=== PATIENT | male | born 1965 | race Hispanic/Latino ===

== ENCOUNTER 2018-02-06 11:30 | Observation (INO) | payer OTHER ==
[~2018-02-06] VITALS: Ht 175.3 cm; Wt 94.7 kg
[2018-02-06 09:50] VITALS: BP 118/76
[2018-02-06 10:06] LABS: BASOPHILS % (AUTO) 1.4 % (0.0-5.0); EOSINOPHILS % (AUTO) 3.8 % (0.0-8.0); HEMATOCRIT 42.2 % (42-54); LYMPHOCYTES % (AUTO) 28.4 % (21.0-51.0); MEAN CORPUSCULAR HEMOGLOBIN 33.1 pg (27.0-33.0); MEAN CORPUSCULAR HGB CONC 35.5 g/dL (32.0-36.0); MEAN CORPUSCULAR VOLUME 93.2 fL (79-99); MONOCYTES % (AUTO) 11.4 % (3.0-13.0); PLATELET COUNT (AUTO) 288 K/uL (130-400); RED BLOOD CELL COUNT(AUTO) 4.53 MIL/uL (4.50-6.20); RED CELL DISTRIBUTION WIDTH 13.3 % (11.0-15.5); WHITE BLOOD COUNT (AUTO) 5.7 K/uL (4.8-10.8)
[2018-02-06 10:15] LABS: POTASSIUM 4.2 mmol/L (3.5-5.1)
[~2018-02-06 11:30] MED LIST: AEC81 PO; FISH1CAP50 PO; GABA-531 PO
[2018-02-07] MEDS ORDERED: OLME1TAB46 PO (11:42)
[2018-02-09] VITALS (20 sets, daily range): BP systolic 90–154; BP diastolic 45–66
[2018-02-09] MEDS: CEFAZOLIN SODIUM 1 GM VIAL IVP SCH ×2 (06:00→07:30)
[2018-02-09] MEDS ORDERED: LACTATED RINGERS 1000ML 1,000 ML IV ONE (06:20)
[2018-02-09] MEDS ORDERED: BUPIVACAINE/PF 0.5% 30ML VIAL ONE (06:24)
[2018-02-09] MEDS ORDERED: EPINEPHRINE 1 MG/ML AMPULE ONE (06:24)
[2018-02-09] MEDS ORDERED: BUPIVACAINE/PF 0.25% 30ML VIAL IJ ONE (06:24)
[2018-02-09] MEDS ORDERED: BACITRACIN 50,000 UNIT VIAL ONE (06:25)
[2018-02-09] MEDS ORDERED: THROMBIN-JMI 20000 UNIT KIT TP ONE (06:25)
[2018-02-09] MEDS ORDERED: DURAMORPH PF1 MG/ML 10ML AMP IV ONE (06:25)
[2018-02-09] MEDS ORDERED: SODIUM CHLORIDE 0.9% 10 ML VIAL ONE (06:26)
[2018-02-09] MEDS ORDERED: OLME1TAB26 PO (06:51)
[2018-02-09] MEDS ORDERED: GLYCOPYRROLATE 0.2 MG/ML 5 ML VIAL ONE (07:02)
[2018-02-09] MEDS ORDERED: DEXAMETHASONE SOD PHOSPHATE 10MG/ML 1ML VIAL ONE ×2 (07:02→09:43)
[2018-02-09] MEDS ORDERED: NEOSTIGMINE 5MG/5ML SYR IV ONE (07:02)
[2018-02-09] MEDS ORDERED: LIDOCAINE PF 2% 5ML ABBOJECT ONE (07:02)
[2018-02-09] MEDS ORDERED: FENTANYL CITRATE PF 50 MCG/1 ML 2ML VIAL ONE ×3 (07:06→10:05)
[2018-02-09] MEDS ORDERED: PROPOFOL 10 MG/ML 20ML VIAL IV ONE (07:06)
[2018-02-09] MEDS ORDERED: MIDAZOLAM HCL 1 MG/ML 2ML VIAL ONE (07:06)
[2018-02-09] MEDS ORDERED: SUCCINYLCHOLINE CHLORIDE 20 MG/ML 10 ML VIAL ONE (09:42)
[2018-02-09] MEDS ORDERED: ONDANSETRON HCL MDV 20ML 2 MG/ML VIAL ONE (09:42)
[2018-02-09] MEDS ORDERED: ROCURONIUM BROMIDE 10MG/1ML 5ML VL ONE (09:42)
[2018-02-09] MEDS ORDERED: METOCLOPRAMIDE 10 MG/2 ML VIAL ONE (09:42)
[2018-02-09] MEDS ORDERED: HYDROCODONE/ACETAMINOPHEN 5/325 MG TAB PO PRN (09:45)
[2018-02-09] MEDS ORDERED: SODIUM CHLORIDE 0.9% 10 ML VIAL IVP PRN (09:45)
[2018-02-09] MEDS ORDERED: CEFAZOLIN 2GM / 50 ML 50 ML IV SCH (09:45)
[2018-02-09] MEDS ORDERED: PROMETHAZINE HCL 25 MG/ML 1ML AMPULE IM PRN (09:45)
[2018-02-09] MEDS ORDERED: MORPHINE SULFATE 2 MG/ML 1ML SYG IVP PRN (09:45)
[2018-02-09] MEDS ORDERED: CEFAZOLIN SODIUM 1 GM VIAL IVP SCH (10:00)
[2018-02-09] MEDS: DEXAMETHASONE SOD PHOSPHATE 4 MG/ML 1ML VIAL IVP SCH ×3 (10:54→22:10)
[2018-02-09] MEDS: LACTATED RINGERS 1000ML 1,000 ML IV SCH ×2 (10:54→22:06)
[2018-02-09] MEDS: GABAPENTIN 300 MG CAPSULE PO SCH ×2 (13:55→22:10)
[2018-02-10] VITALS: BP 115/55
[2018-02-10] MEDS: DEXAMETHASONE SOD PHOSPHATE 4 MG/ML 1ML VIAL IVP SCH (03:33)
[2018-02-10 04:00] VITALS: BP 105/65
[2018-02-10 07:40] VITALS: BP 113/68
[2018-02-10] MEDS: GABAPENTIN 300 MG CAPSULE PO SCH (08:20)
[2018-02-10] MEDS ORDERED: HCTHIAZID PO SCH (09:00)
[2018-02-10] MEDS ORDERED: ASPIRIN 81 MG EC TAB PO SCH (09:00)
[2018-02-10] MEDS ORDERED: AMLODIPIN PO SCH (09:00)
[2018-02-10] MEDS ORDERED: OLMESARTAN PO SCH (09:00)
[2018-02-10] MEDS ORDERED: FISH OIL 1000 MG/CAP PO SCH (09:00)
== END 2018-02-10 09:58 | disposition home or self-care (01) ==
LOC: EDSTATUS 11:30 → DAHIP 02-09 05:44 → INTOOBSV 02-09 05:44 → 4AH 02-09 10:36
PROVIDERS: ADMIT Neurological Surgery; ATTEND Neurological Surgery
DX: M51.26 Other intervertebral disc displacement, lumbar region (principal); G96.19 Other disorders of meninges, not elsewhere classified; M21.379 Foot drop, unspecified foot; M25.78 Osteophyte, vertebrae
CPT/HCPCS: 36415; 63047; 72020; 80051; 85025; 96374; 96376 ×2; A4218; A4344; A4510; A4600; A5113; A6219; G0378 ×29; J0171; J0330; J0690; J1100 ×6; J2001; J2250; J2274; J2704; J2710; J2765; J3010 ×3; J3490 ×4; J7120 ×2

== ENCOUNTER → 2018-11-28 | Outpatient (CLI) | payer OTHER ==
[~2018-11-28] MED LIST changes: +OLME1TAB26 PO
== END | disposition home or self-care (01) ==
LOC: RAH 12:45
PROVIDERS: ATTEND Physical Medicine & Rehabilitation
DX: M47.816 Spondylosis without myelopathy or radiculopathy, lumbar region (principal); K57.90 Diverticulosis of intestine, part unspecified, without perforation or abscess without bleeding
CPT/HCPCS: 72131

== ENCOUNTER → 2021-01-15 | Outpatient (CLI) | payer MEDICARE | END | disposition home or self-care (01) | LOC: RAH 10:23 | PROVIDERS: ATTEND Internal Medicine Gastroenterology | DX: K31.84 Gastroparesis (principal) | CPT/HCPCS: 78264; A9541 ==

== ENCOUNTER → 2022-04-02 | Outpatient (CLI) | payer OTHER | END | disposition home or self-care (01) | LOC: RAH 11:07 | PROVIDERS: ATTEND Physician Assistant Medical | DX: M47.16 Other spondylosis with myelopathy, lumbar region (principal); M48.061 Spinal stenosis, lumbar region without neurogenic claudication | CPT/HCPCS: 72148 ==